=== PATIENT | female | born 1935 | race Caucasian/White ===

== ENCOUNTER → 2016-07-21 | Day surgery (SDC) | payer OTHER ==
[2016-07-14 08:32] VITALS: Ht 167.6 cm; Wt 84.1 kg
[~2016-07-21] VITALS: Ht 167.6 cm; Wt 84.1 kg
[~2016-07-21] MED LIST: ASPCH81X PO; ATOR-22 PO; LIDOCAINE HCL 2% 2 ML VIAL (20MG/ML) ONE; LISI-789 PO; METO1TAB66 PO; MISCCAP80 PO; MULT-506 PO; PROPOFOL IV EMULSION 10 MG/ML 20 ML VIAL IV ONE; SODIUM CHLORIDE 0.9% 500ML 500 ML IV ONE
--- NOTE | 2016-07-21 10:56 | Endo History and Physical ---
History & Physical Date of Service: Jul 21, 2016. Chief Complaint: Fecal Incontinence, Diarrhea Referring Physician: History of Present Illness hx of chronic diarrhea Past Surgical History Hx Cardiac Surgery: No Hx Internal Defibrillator: No Hx Pacemaker: No Hx Abdominal Surgery: Yes (COLON RESECTION, APPY, TAHBSO) Hx of Implantable Prosthesis: No Hx Post-Op Nausea and Vomiting: No Hx Cancer Surgery: Yes (LEFT MASTECTOMY) Hx Thoracic Surgery: No Hx Orthopedic: No Hx Urinary Tract Surgery: No Family History Polyp Social History Smoking Status: Never Smoker Hx Substance Use: No Hx Alcohol Use: Yes (RARELY) Allergies Coded Allergies: NO KNOWN DRUG ALLERGIES (Verified Allergy, Unknown, ., 07/14/16) Current Medications Reported Home Medications Medications Dose Route/Sig Max Daily Dose Days Date Category Probiotic (Probiotic Product) 1 Cap Cap 1 Cap PO QAM 07/14/16 Reported Multivitamin (Multivitamins) Tab 1 Tab PO QAM 07/14/16 Reported Aspirin Chewable (Aspirin) 81 Mg Chew 81 Mg PO QAM 07/14/16 Reported Zestril (Lisinopril) 2.5 Mg Tab 1 Tab PO QAM 07/14/16 Reported Lipitor (Atorvastatin Calcium) 20 Mg Tab 20 Mg PO DAILY AFTERNOON 07/14/16 Reported Toprol Xl (Metoprolol Succinate) 50 Mg Tab 50 Mg PO QAM 07/14/16 Reported Vital Signs Weight (Kilograms): 84.09 Height (Feet): 5 Height (Inches): 6 Date Time Temp Pulse Resp B/P Pulse Ox O2 Delivery O2 Flow Rate FiO2 07/21/16 10:30 36.7 75 20 151/76 97 Room Air Physical Exam General Appearance: no apparent distress Respiratory/Chest: Auscultation: breath sounds normal Cardiovascular: Heart Auscultation: RRR Abdomen: Inspection & Palpation: soft Liver: non-tender Assessment and Plan stable for colonoscopy
--- NOTE | 2016-07-21 11:27 | Discharge Instructions ---
Endoscopy Patient Instructions Date / Procedure(s) Performed Jul 21, 2016. Colonoscopy Allergy Information Coded Allergies: NO KNOWN DRUG ALLERGIES (Verified Allergy, Unknown, ., 07/14/16) Discharge Date / Findings Jul 21, 2016. diverticulosis/hemorrhoids Provider Instructions Activity Restrictions - No exercising or heavy lifting for 24 hours. - Do not drink alcohol the day of the procedure. - Do not drive a car or operate machinery until the day after the procedure. - Do not make any important decisions or sign important papers in 24 hours after the procedure. Following Day: - Return to full activity which may include returning to work/school. Diet Start your diet with liquids and light foods (jello, soup, juice, toast). Then eat your usual diet if not nauseated. Treatment For Common After Affects For mild abdominal pain, bloating, or excessive gas: - Rest - Eat lightly - Lie on right side Follow-Up Information Follow-up with as scheduled Anesthesia Information What You Should Know You have had a procedure that required some medicine to reduce anxiety and discomfort. This treatment is called moderate sedation. After receiving the treatment, you may be sleepy, but you will be able to breathe on your own. The effects of the treatment may last for several hours. Follow these instructions along with Activity/Diet recommendations noted above: * Do NOT do anything where dizziness or clumsiness would be dangerous. * Rest quietly at home today, then you can be up and about tomorrow. * Have a responsible person stay with you the rest of today. * You may have had an I.V. today. If so, you may take the dressing off later today. Recommendations Call your doctor if: * Trouble breathing * Continuous vomiting for more than 24 hours * Temperature above 101 degrees * Severe abdominal pain or bloating * Pain not relieved by pain medicine ordered * There is increased drainage or redness from any incision * A large amount of rectal bleeding greater than 2-3 tablespoons. (If you had a polyp/s removed or have hemorrhoids, a small amount of blood - from the rectum is to be expected.) * You have any unanswered questions or concerns. IN THE EVENT OF A SERIOUS EMERGENCY, GO TO THE NEAREST EMERGENCY ROOM Your discharge instructions were prepared by provider Tyler Dudley. Patient Instructions Signature Page Evelyn Kat Patient (or Guardian) Signature/Date: I have read and understand the instructions given to me by my caregivers. Caregiver/RN/Doctor Signature/Date: The above-named patient and/or guardian has received patient instructions on this date. + Original Patient Signature Page (only) stays with chart. Please make copy for patient.
--- NOTE | 2016-07-21 11:44 | GI REPORT ---
Procedure Date: 07/21/2016 10:52 AM Procedure: Colonoscopy Indications: Chronic diarrhea Medicines: See the Anesthesia note for documentation of the administered medications Complications: No immediate complications. Estimated Blood Loss: Estimated blood loss: none. Procedure: Pre-Anesthesia Assessment: - Prior to the procedure, a History and Physical was performed, and patient medications, allergies and sensitivities were reviewed. The patient's tolerance of previous anesthesia was reviewed. - The risks and benefits of the procedure and the sedation options and risks were discussed with the patient. All questions were answered and informed consent was obtained. - Patient identification and proposed procedure were verified prior to the procedure by the physician and the nurse. The procedure was verified in the pre-procedure area. - Pre-procedure physical examination revealed no contraindications to sedation. - After reviewing the risks and benefits, the patient was deemed in satisfactory condition to undergo the procedure. After I obtained informed consent, the scope was passed under direct vision. Throughout the procedure, the patient's blood pressure, pulse, and oxygen saturations were monitored continuously. The scope was introduced through the anus and advanced to the cecum, identified by appendiceal orifice and ileocecal valve. The colonoscopy was performed without difficulty. The patient tolerated the procedure well. The quality of the bowel preparation was good. Findings: The perianal and digital rectal examinations were normal. Multiple medium-mouthed diverticula were found in the transverse colon and in the ascending colon. There was evidence of a prior end-to-side colo-colonic anastomosis at 15 cm proximal to the anus. This was patent and was characterized by healthy appearing mucosa. Internal hemorrhoids were found during retroflexion. Impression: - Diverticulosis in the transverse colon and in the ascending colon. - Patent end-to-side colo-colonic anastomosis, characterized by healthy appearing mucosa. - Internal hemorrhoids. - No specimens collected. - No evidence of colitis. Recommendation: - Discharge patient to home. Tyler Dudley M.D. Tyler Dudley MD 07/21/2016 11:43:44 AM This report has been signed electronically. Note Initiated On: 07/21/2016 10:52 AM I attest to the content of the Intraoperative Record and orders documented therein, exceptions below
[2016-07-21 12:00] VITALS: BP 139/70; PULSE 76; O2SAT 98
--- NOTE | 2016-07-21 12:11 | Anesthesiology Progress Note ---
Anesthesia Post Op Note Date & Time Jul 21, 2016 at 12:11 Vital Signs Pain Intensity: 0 Vital Signs Past 12 Hours Date Time Temp Pulse Resp B/P Pulse Ox O2 Delivery O2 Flow Rate FiO2 07/21/16 12:00 76 20 139/70 98 Room Air 07/21/16 11:45 79 20 129/66 97 Room Air 07/21/16 11:30 87 20 119/59 99 Room Air 07/21/16 10:30 36.7 75 20 151/76 97 Room Air Notes Mental Status: alert / awake / arousable, participated in evaluation Pt Amnestic to Procedure: Yes Nausea / Vomiting: adequately controlled Pain: adequately controlled Airway Patency, RR, SpO2: stable & adequate BP & HR: stable & adequate Hydration State: stable & adequate Anesthetic Complications: no major complications apparent
== END | disposition home or self-care (01) ==
LOC: C.GI 10:01
PROVIDERS: ATTEND Internal Medicine Gastroenterology
DX: K52.9 Noninfective gastroenteritis and colitis, unspecified (principal); R15.9 Full incontinence of feces; K57.30 Diverticulosis of large intestine without perforation or abscess without bleeding; K64.8 Other hemorrhoids; I10 Essential (primary) hypertension; Z86.73 Personal history of transient ischemic attack (TIA), and cerebral infarction without residual deficits; E11.9 Type 2 diabetes mellitus without complications; Z90.49 Acquired absence of other specified parts of digestive tract; Z90.89 Acquired absence of other organs; Z90.12 Acquired absence of left breast and nipple; Z68.30 Body mass index [BMI] 30.0-30.9, adult